=== PATIENT | male | born 1955 | race Caucasian/White ===

== ENCOUNTER → 2020-06-19 09:13 | Outpatient (BNVA) | payer OTHER, SELFPAY | PROVIDERS: Family Provider Family Medicine; PCP Family Medicine; Visit Provider Podiatrist Foot & Ankle Surgery | DX: M79.672 Pain in left foot (principal) | CPT/HCPCS: 73630 ==

== ENCOUNTER 2020-07-10 11:01 | Outpatient (CLI) | payer OTHER, SELFPAY ==
--- NOTE | 2020-07-10 11:00 | US_ITS ---
WS: [id number] ULTRASOUND SOFT TISSUES LEFT foot HISTORY: foot pain COMPARISON: None available. TECHNIQUE: 2-D and color Doppler imaging is submitted. Ultrasound is directed between the metatarsal heads. There is no soft tissue mass or fluid to suggest Diehl's neuroma on the imaging submitted. US/ soft tissue/extremity [id number] IMPRESSION: Cannot confirm Diehl's neuroma by ultrasound.
== END 2020-07-10 11:02 | disposition home or self-care (01) ==
LOC: RAD 11:01
PROVIDERS: PCP Family Medicine; Visit Provider Podiatrist Foot & Ankle Surgery
DX: M79.672 Pain in left foot (principal)
CPT/HCPCS: 76882

== ENCOUNTER → 2020-07-15 13:44 | Outpatient (BNVA) | payer OTHER, SELFPAY | PROVIDERS: PCP Family Medicine; Visit Provider Specialist | DX: M79.673 Pain in unspecified foot (principal); M25.561 Pain in right knee; M17.11 Unilateral primary osteoarthritis, right knee | CPT/HCPCS: 73560; 73565 ==

== ENCOUNTER 2021-02-10 14:51 | Outpatient (CLI) | payer OTHER, SELFPAY ==
--- NOTE | 2021-02-10 15:06 | XR_ITS ---
WS: [id number] Exam: XR shoulder LT min 2V* [id number] Date/Time of Exam: 02/10/2021 3:06 PM Reason For Exam: PAIN IN LEFT SHOULDER The projections of the shoulder reveal no fractures, anomalies, soft tissue swelling, or calcificatio ns. There is normal bony alignment. No irregularity of the bony architecture is noted. XR/XR shoulder LT min 2V* [id number] IMPRESSION: Negative left shoulder.
== END 2021-02-10 14:52 | disposition home or self-care (01) ==
LOC: RADOUTREAD 14:53 → WPI 15:05
PROVIDERS: PCP Family Medicine; Visit Provider Clinical Nurse Specialist Adult Health
DX: M25.512 Pain in left shoulder (principal)
CPT/HCPCS: 73030

== ENCOUNTER → 2021-04-07 11:18 | Outpatient (BNVA) | payer OTHER, SELFPAY | PROVIDERS: PCP Family Medicine; Visit Provider Specialist | DX: M25.512 Pain in left shoulder (principal) | CPT/HCPCS: 73030 ==

== ENCOUNTER 2021-05-27 15:19 | Outpatient (CLI) | payer MEDICARE, SELFPAY ==
--- NOTE | 2021-05-27 15:45 | MR_ITS ---
WS: [id number] MRI LEFT SHOULDER HISTORY: STRAIN OF UNSPECIFIED MUSCLE COMPARISON: Shoulder radiograph 04/07/2021 TECHNIQUE: Multiplanar sequences of the shoulder joint are submitted. Moderate soft tissue and bone hypertrophy at the AC joint. Moderate narrowing of the AC joint with mi ld inflammatory changes surrounding the joint. Small amount of fluid in the subacromial and subdeltoi d bursa. No os acromion. Biceps tendon in the bicipital groove with small amount of increased fluid a long the tendon sheath. There is a small osteophyte along the distal undersurface of the acromion wit h very minimal impingement upon the distal supraspinatus tendon. Mild narrowing of the glenohumeral joint. Very slightly high riding humeral head. No muscle atrophy o r edema. No rotator cuff tears are identified. There is a small amount of muscle edema along the infe rior surface of the supraspinatus muscle and extends into the tendon which may be due to recent traum a. The adjacent supraspinatus tendon does appear intact. There is also increased T2 signal within the coracohumeral ligament and through the rotator cuff interval. Small amount of fluid distending the s ubscapularis recess. No labral tear. MR/MR shoulder LT wo con* [id number] IMPRESSION: 1. Increased T2 signal consistent with acute injury involving the coracohumera l ligament and the adjacent supraspinatus muscle with extension to the tendon s gisella. Probably from prior trauma. Consider partially torn rotator cuff interva l and adhesive capsulitis. No full-thickness tear within the supraspinatus tend on. 2. The biceps tendon appears in normal position 3. 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
== END 2021-05-27 15:20 | disposition home or self-care (01) ==
LOC: RAD 15:33
PROVIDERS: PCP Family Medicine; Visit Provider Specialist
DX: S46.912A Strain of unspecified muscle, fascia and tendon at shoulder and upper arm level, left arm, initial encounter (principal); X58.XXXA Exposure to other specified factors, initial encounter
CPT/HCPCS: 73221

== ENCOUNTER → 2021-07-10 09:42 | Outpatient (BNVA) | payer MEDICARE, SELFPAY | PROVIDERS: PCP Family Medicine; Visit Provider Specialist | DX: M17.11 Unilateral primary osteoarthritis, right knee (principal); Z87.891 Personal history of nicotine dependence | CPT/HCPCS: 20610; J7325 ==

== ENCOUNTER → 2021-12-04 09:04 | Outpatient (BNVA) | payer MEDICARE, SELFPAY | PROVIDERS: PCP Family Medicine; Visit Provider Family Medicine | DX: Z00.00 Encounter for general adult medical examination without abnormal findings (principal) | CPT/HCPCS: 80053; 80061; 83036; 85025; 85651 ==

== ENCOUNTER → 2022-03-12 09:01 | Outpatient (BNVA) | payer MEDICARE, SELFPAY | PROVIDERS: PCP Family Medicine; Visit Provider Specialist | DX: M17.11 Unilateral primary osteoarthritis, right knee (principal); Z71.89 Other specified counseling | CPT/HCPCS: 20610; J7325 ==

== ENCOUNTER → 2022-09-17 09:10 | Outpatient (BNVA) | payer MEDICARE, SELFPAY | PROVIDERS: PCP Family Medicine; Visit Provider Specialist | DX: M17.11 Unilateral primary osteoarthritis, right knee (principal); Z71.89 Other specified counseling | CPT/HCPCS: 20610; J7325 ==

== ENCOUNTER → 2023-07-16 07:57 | Outpatient (BNVA) | payer MEDICARE, SELFPAY | PROVIDERS: PCP Family Medicine; Visit Provider Specialist | DX: M17.11 Unilateral primary osteoarthritis, right knee (principal); Z71.89 Other specified counseling | CPT/HCPCS: 20610; J7325 ==

== ENCOUNTER → 2024-01-21 08:39 | Outpatient (BNVA) | payer MEDICARE, SELFPAY | PROVIDERS: PCP Family Medicine; Visit Provider Specialist | DX: M17.11 Unilateral primary osteoarthritis, right knee (principal); Z71.89 Other specified counseling | CPT/HCPCS: 20610 ==

== ENCOUNTER → 2024-07-28 08:38 | Outpatient (BNVA) | payer MEDICARE, SELFPAY | PROVIDERS: PCP Family Medicine; Visit Provider Specialist | DX: M17.11 Unilateral primary osteoarthritis, right knee (principal); Z71.89 Other specified counseling | CPT/HCPCS: 20610; J7318 ==

== ENCOUNTER → 2025-02-09 09:37 | Outpatient (BNVA) | payer MEDICARE, SELFPAY | PROVIDERS: PCP Family Medicine; Visit Provider Specialist | DX: M17.11 Unilateral primary osteoarthritis, right knee (principal) | CPT/HCPCS: 20610; J7318 ==